=== PATIENT | female | born 1990 | race Caucasian/White ===

== ENCOUNTER → 2024-09-28 12:46 | Outpatient (REF) | payer BC, SELFPAY | LOC: RCS 12:46 | PROVIDERS: ATTENDING PHYSICIAN Internal Medicine Cardiovascular Disease; FAMILY PHYSICIAN Internal Medicine | DX: I63.9 Cerebral infarction, unspecified (principal) | CPT/HCPCS: 93306 ==

== ENCOUNTER 2024-11-23 09:21 | Day surgery (SDC) | payer BC, SELFPAY ==
--- NOTE | 2024-11-23 13:34 | ITS.CL.IMPLP ---
General Teller - Implant Loop
Implant Loop
Procedure Report:
Primary Physician: Dr. Arabella Shultz
Primary Sugar Chipper Machine Operator: Dr. Heath Barrios
Procedure Date: 11/23/2024
Procedure: Placement of a loop recorder.
History/Indication:
1. See office H&P for complete history.
2. Patient is a pleasant 34-year-old female with a past medical history significant for dyslipidemia, palpitations, and cryptogenic cerebellar stroke. Patient undergo ILR implant in the send of cryptogenic stroke for longitudinal surveillance for
possible arrhythmic etiology to her cryptogenic stroke.
Method:
After informed consent was obtained, the patient was brought to the EP laboratory holding area in a fasting, non-sedated state. Peripheral access was established. The left chest was prepared and draped in a sterile fashion. A 'time out' was
called. Local anesthesia was injected in the subcutaneous tissue. The ILR was injected under the skin. Topical skin adhesive was applied. Following the procedure, the patient was taken to the recovery area in stable condition. No complications
were noted.
Device Data:
[employer]; Model# LINQII; Serial# [id number]
Conclusion:
Successful placement of a loop recorder.
Recommendations:
1. Follow-up will be arranged in the [facility] in 7-10 days for wound check.
2. Routine ILR care.
Israel Santoyo DO, [facility], [facility]
Clinical Cardiac Shop Coordinator
cc: Dr. Arabella Shultz; Dr. Heath Barrios
== END 2024-11-23 13:35 | disposition home or self-care (01) ==
LOC: CATH 09:21
PROVIDERS: ATTENDING PHYSICIAN Internal Medicine Cardiovascular Disease; FAMILY PHYSICIAN Internal Medicine; OTHER PHYSICIAN Internal Medicine Cardiovascular Disease
DX: Z09 Encounter for follow-up examination after completed treatment for conditions other than malignant neoplasm (principal); Q21.12 Patent foramen ovale; Z86.73 Personal history of transient ischemic attack (TIA), and cerebral infarction without residual deficits; E78.5 Hyperlipidemia, unspecified
CPT/HCPCS: 33285; 93312; 93320; 93325; C1764

== ENCOUNTER 2024-11-23 17:32 | Emergency (ER) | payer BC, SELFPAY ==
[2024-11-23 17:44] VITALS: BP 115/71
[2024-11-23 21:02] VITALS: BMI 32.2
--- NOTE | 2024-11-23 21:18 | ED.GENMED ---
History of Present Illness
General
Chief Complaint: Post Operative Problem(s)
Time Seen by Provider: 11/23/24 21:02
History of Present Illness
History of Present Illness:
34-year-old female with past medical history significant for dyslipidemia, palpitations, and cryptogenic cerebellar stroke presenting status post ILR implant with bleeding at the site. Site of implantation at the skin is at the proximal aspect of
the left breast. Patient notes bleeding at the dressing site. She called cardiology office, advised to come to the hospital. Patient had the device placed for surveillance for possible arrhythmic etiology to her cryptogenic stroke. She presently
denies any acute medical complaints.
Phy Exam
Physical Exam
Physical Exam:
General: Well-appearing, no clinical signs of dehydration, nontoxic and in no acute distress
HEENT: protecting airway
Neck: appears supple
CV: Normal heart rate
Resp: No accessory muscle use, no increased work of breathing
Abd: no distension
Extremities: No deformities, no swelling
Neuro: alert, no focal neurologic deficit
: deferred
Rectal: deferred
Psych: Normal affect
Skin: 2 cm incision at the proximal aspect of the left breast with scant amount of oozing of blood
Course
Orders/Labs/Results
Orders:
Orders
11/23/24 21:38
Cephalexin Monohydrate [Keflex] 500 mg PO NOW STA
Vital Signs
Initial and Last Documented VS:
Initial Vital Signs
Temp Pulse Resp BP Pulse Ox
98.9 F 70 18 115/71 100
11/23/24 17:44 11/23/24 17:44 11/23/24 17:44 11/23/24 17:44 11/23/24 17:44
Last Documented Vital Signs
Temp Pulse Resp BP Pulse Ox
98.9 F 70 18 115/71 100
11/23/24 17:44 11/23/24 17:44 11/23/24 17:44 11/23/24 17:44 11/23/24 17:44
MDM/Problems Addressed
MDM/Problems Addressed:
34-year-old female with past medical history significant for dyslipidemia, palpitations, and cryptogenic cerebellar stroke presenting status post ILR implant with bleeding at the site. Vital signs normal.
On exam patient is well-appearing, no acute distress. Patient has a small incision at the proximal left breast with scant amount of oozing. Area appears clean, no erythema, no drainage. Did discuss with Dr. Santoyo, patient's barrel polisher who
placed the device. He recommends cleaning with ChloraPrep and replacing the Steri-Strips. Advised to hold off on stitching because of the sterile device inside. Also recommending sending with antibiotics. Will start on Keflex. Wound was cleaned
sterilely, Steri-Strips placed with Surgicel on top. Appropriate hemostasis. Feel stable for discharge. She has a follow-up appoint with Dr. Santoyo on Tuesday. Return precautions discussed
*Critical Care Note
Total Time (30-74mins, 75-104mins- exclusive of procedures): Not Applicable
ED Attending Note
-
Portions of this chart may have been created with voice recognition software.� Occasional wrong word or��sound alike� substitutions may have occurred due to the inherent limitations of voice recognition software.
Discharge Plan
Departure
Prescriptions:
No Action
atorvastatin 80 mg Tablet
80 mg PO DAILY
cetirizine 10 mg Tablet
10 mg PO DAILY
clopidogrel 75 mg Tablet
75 mg PO DAILY
Referrals:
Arabella Shultz DO [Family Provider] -
Interventions
Interventions:
*Risk Screen - Suicide Last Done: 11/23/24 17:47
*General Assessment Last Done: 11/23/24 17:47
*Neglect/Abuse Screening Last Done: 11/23/24 17:47
*ED COVID-19 Vaccine History Last Done: 11/23/24 19:07
ED-Skin Assessment Last Done: 11/23/24 19:07
Discharge Date and Time
Print Language: ICELANDIC
[2024-11-23] MEDS: KEFLEX 500 MG PO (22:01)
== END 2024-11-23 22:25 | disposition home or self-care (01) ==
LOC: EMR 17:32
PROVIDERS: EMERGENCY PHYSICIAN Student in an Organized Health Care Education/Training Program; FAMILY PHYSICIAN Internal Medicine
DX: Z48.00 Encounter for change or removal of nonsurgical wound dressing (principal); R00.2 Palpitations; E78.5 Hyperlipidemia, unspecified; Z86.73 Personal history of transient ischemic attack (TIA), and cerebral infarction without residual deficits
CPT/HCPCS: 99282